=== PATIENT | male | born 1985 | race Caucasian/White ===

== ENCOUNTER 2016-06-28 23:01 | Emergency (ER) | payer BC ==
[2016-06-28 23:14] VITALS: BP 132/92; PULSE 93; BMI 25.7
[2016-06-28] MEDS ORDERED: methylPREDNISolone NA SUCC 125 MG/2 ML VIAL ONE (23:30)
[2016-06-28] MEDS ORDERED: FAMOTIDINE 20 MG/50 ML IVPB 50 ML IVPB ONE ×3 (23:31→23:46)
[2016-06-28] MEDS ORDERED: methylPREDNISolone NA SUCC 125 MG/2 ML VIAL IVPB ONE (23:35)
[2016-06-28] MEDS ORDERED: EPINEPHrine/PF 1 MG/1 ML (1:1,000) AMPULE ONE (23:37)
[2016-06-28] MEDS ORDERED: EPINEPHrine 1:1,000 0.3 MG/0.3 ML SYR IM ONE (23:45)
--- NOTE | 2016-06-29 00:31 | PDOC ---
[id number] is a 31 year old male, with a significant past medical history of angioedema (jose 2x daily, hydroxyzine and benadryl as needed) and asthma ( with numerous intubations) who presents to the emergency department with tingling to his tongue and lips which started about an hour and a half ago after eating a grilled chicken salad without dressing around 8PM tonight. He reports taking benadryl about an hours ago, but states he can tell his symptoms are progressing as they usually do because his upper legs feel itchy which he reports happens just before he breaks out in hives. He states he has been referred to an manager company and has an appointment for next week. He denies chest pain, shortness of breath, headache and dizziness. He denies fever, chills, nausea, vomit, diarrhea and constipation. He denies dysuria, frequency, urgency and hematuria. Allergies: NKDA. Pt states he is allergic to everything PCP - Dr. Booth Lead Rider: Dr. Flip Franco Hx: Rheumatoid arthritis, hereditary angioedema, and raynaud's (Mother) <Mary Geronimo - Last Filed: 06/29/16 00:36> <Rebekah Daigle - Last Filed: 06/29/16 01:22> - General Chief Complaint: Allergic Reaction Stated Complaint: ALLERGIC RX Time Seen by Provider: 06/28/16 23:06 Past History <Mary Geronimo - Last Filed: 06/29/16 00:36> - Past Medical History Asthma: Yes Cardiac Disorders: Yes (MVP) GI Disorders: Yes (NEW DX OF CDIFF COLITIS OCTOBER 2012) Kidney Stones: Yes (W/LITHOTRIPSY) - Immunization History Td Vaccination: Yes Immunization Up to Date: Yes - Psycho/Social/Smoking Cessation Hx Anxiety: No Suicidal Ideation: No Smoking Status: No Smoking History: Former smoker Years of Tobacco Use: 0 Have you smoked in the past 12 months: Yes Number of Cigarettes Smoked Daily: 0 Cigars Per Day: 0 Information on smoking cessation initiated: No Hx Alcohol Use: No Drug/Substance Use Hx: No Substance Use Type: None Hx Substance Use Treatment: No <Rebekah Daigle - Last Filed: 06/29/16 01:22> - Past Medical History Allergies/Adverse Reactions: Allergies Allergy/AdvReac Type Severity Reaction Status Date / Time No Known Allergies Allergy Verified 06/28/16 23:06 Home Medications: Ambulatory Orders Diphenhydramine [Benadryl -] 50 mg PO ONCE 06/28/16 Varenicline Tartrate [Chantix] 1 mg PO ASDIR 06/28/16 Review of Systems - Review of Systems Able to Perform ROS?: Yes Comments:: 06/29/16 00:37 CONSTITUTIONAL: Absent: fever, chills, diaphoresis, generalized weakness, malaise, loss of appetite HEENT: (+) lip swelling and tingling. Absent: rhinorrhea, nasal congestion, throat pain , throat swelling, difficulty swallowing, ear pain, eye pain, visual Changes CARDIOVASCULAR: Absent: chest pain, syncope, palpitations, irregular heart rate, lightheadedness , peripheral edema RESPIRATORY: Absent: cough, shortness of breath, dyspnea with exertion, orthopnea, wheezing, stridor, hemoptysis GASTROINTESTINAL: Absent: abdominal pain, abdominal distension, nausea, vomiting, diarrhea, constipation, melena, hematochezia GENITOURINARY: Absent: dysuria, frequency, urgency, hesitancy, hematuria, flank pain, genital pain MUSCULOSKELETAL: Absent: myalgia, arthralgia, joint swelling SKIN: Absent: rash, itching, pallor HEMATOLOGIC/IMMUNOLOGIC: Absent: easy bleeding, easy bruising, lymphadenopathy, frequent infections ENDOCRINE: Absent: unexplained weight gain, unexplained weight loss, heat intolerance, cold intolerance NEUROLOGIC: Absent: headache, focal weakness or paresthesias, dizziness, unsteady gait, seizure, mental status changes, bladder or bowel incontinence PSYCHIATRIC: Absent: anxiety, depression, suicidal or homicidal ideation, hallucinations. <Mary Geronimo - Last Filed: 06/29/16 00:36> *Physical Exam - Vital Signs Last Vital Signs Temp Pulse Resp BP Pulse Ox 93 H 16 132/92 100 06/28/16 23:09 06/28/16 23:09 06/28/16 23:09 06/28/16 23:09 - Physical Exam Comments: 06/29/16 00:37 GENERAL: Well developed, well nourished. Awake and alert. No acute distress. HEENT: (+) Angioedema with maxillary lip swelling. Normocephalic, atraumatic. PERRLA, EOMI. No conjunctival pallor. Sclera are non-icteric. Moist mucous membranes. Oropharynx is clear. NECK: Supple. Full ROM. No JVD. Carotid pulses 2+ and symmetric, without bruits. No thyromegaly. No lymphadenopathy. CARDIOVASCULAR: Regular rate and rhythm. No murmurs, rubs, or gallops. Distal pulses are 2+ and symmetric. PULMONARY: No evidence of respiratory distress. Lungs clear to auscultation bilaterally. No wheezing, rales or rhonchi. ABDOMINAL: Soft. Non-tender. Non-distended. No rebound or guarding. No organomegaly. Normoactive bowel sounds. MUSCULOSKELETAL Normal range of motion at all joints. No bony deformities or tenderness. No CVA tenderness. EXTREMITIES: No cyanosis. No clubbing. No edema. No calf tenderness. SKIN: Warm and dry. Normal capillary refill. No rashes. No jaundice. NEUROLOGICAL: Alert, awake, appropriate. Cranial nerves 2-12 intact. Normoreflexic in the upper and lower extremities. Normal speech. Toes are down-going bilaterally. Gait is normal without ataxia. PSYCHIATRIC: Cooperative. Good eye contact. Appropriate mood and affect. <Mary Geronimo - Last Filed: 06/29/16 00:36> - Vital Signs Last Vital Signs Temp Pulse Resp BP Pulse Ox 93 H 16 132/92 100 06/28/16 23:09 06/28/16 23:09 06/28/16 23:09 06/28/16 23:09 <Rebekah Daigle - Last Filed: 06/29/16 01:22> ED Treatment Course - Medications Given in the ED: ED Medications Discontinued Medications Generic Name Dose Route Start Last Admin Trade Name Phucq PRN Reason Stop Dose Admin Epinephrine HCl 0.3 mg 06/28/16 23:45 06/28/16 23:50 Epipen 0.3mg - IM 06/28/16 23:46 0.3 mg ONCE ONE Administration Famotidine/Sodium Chloride 50 mls @ 100 mls/hr 06/28/16 23:35 06/28/16 23:35 Pepcid 20 Mg Premixed Ivpb - IVPB 06/29/16 00:04 100 mls/hr ONCE ONE Administration Famotidine/Sodium Chloride 50 mls @ 100 mls/hr 06/28/16 23:46 06/28/16 23:51 Pepcid 20 Mg Premixed Ivpb - IVPB 06/29/16 00:15 Not Given ONCE ONE Methylprednisolone Sodium Succinate 125 mg 06/28/16 23:35 06/28/16 23:35 Solu-Medrol - IVPB 06/28/16 23:36 125 mg NOW ONE Administration <Mary Geronimo - Last Filed: 06/29/16 00:36> - Medications Given in the ED: ED Medications Discontinued Medications Generic Name Dose Route Start Last Admin Trade Name Ashley PRN Reason Stop Dose Admin Epinephrine HCl 0.3 mg 06/28/16 23:45 06/28/16 23:50 Epipen 0.3mg - IM 06/28/16 23:46 0.3 mg ONCE ONE Administration Famotidine/Sodium Chloride 50 mls @ 100 mls/hr 06/28/16 23:35 06/28/16 23:35 Pepcid 20 Mg Premixed Ivpb - IVPB 06/29/16 00:04 100 mls/hr ONCE ONE Administration Famotidine/Sodium Chloride 50 mls @ 100 mls/hr 06/28/16 23:46 06/28/16 23:51 Pepcid 20 Mg Premixed Ivpb - IVPB 06/29/16 00:15 Not Given ONCE ONE Methylprednisolone Sodium Succinate 125 mg 06/28/16 23:35 06/28/16 23:35 Solu-Medrol - IVPB 06/28/16 23:36 125 mg NOW ONE Administration <Rebekah Daigle - Last Filed: 06/29/16 01:22> Medical Decision Making - Medical Decision Making 06/29/16 01:21 31-year-old male with a history of hereditary angioedema presents with maxillary lip swelling. Lungs are clear, no evidence of wheezing. He is not in any respiratory distress. No hives are appreciated. Patient did receive IV steroids, subcutaneous epinephrine and Benadryl and his swelling improved. He is undergoing a workup for his angioedema and is followed by an handy worker and has been referred also to a reproduction production manager <Rebekah Daigle - Last Filed: 06/29/16 01:22> *DC/Admit/Observation/Transfer - Attestations Scribe Attestion: 06/29/16 00:39 Documentation prepared by Mary Geronimo, acting as health care / medical job titles for Rebekah Daigle MD <Mary Geronimo - Last Filed: 06/29/16 00:36> <Rebekah Daigle - Last Filed: 06/29/16 01:22> Diagnosis at time of Disposition: Angioedema Qualifiers: Encounter type: subsequent encounter Qualified Code(s): T78.3XXD - Angioneurotic edema, subsequent encounter - Discharge Dispostion Disposition: HOME Condition at time of disposition: Stable - Patient Instructions Printed Discharge Instructions: DI for Angioedema Additional Instructions: Please continue your appointments with your specialists
[2016-06-29] MEDS ORDERED: methylPREDNISolone NA SUCC 125 MG/2 ML VIAL IVPB SCH (10:00)
== END 2016-06-29 00:41 | disposition home or self-care (01) ==
LOC: JER 23:01
PROC: 3E033GC Introduction of Other Therapeutic Substance into Peripheral Vein, Percutaneous Approach (ICD-10-PCS; principal; 2016-06-28)
PROC: 3E023GC Introduction of Other Therapeutic Substance into Muscle, Percutaneous Approach (ICD-10-PCS; 2016-06-28)
DX: T78.3XXA Angioneurotic edema, initial encounter (principal); X58.XXXA Exposure to other specified factors, initial encounter; Y93.9 Activity, unspecified; J45.909 Unspecified asthma, uncomplicated; I34.1 Nonrheumatic mitral (valve) prolapse; Z87.442 Personal history of urinary calculi; Z87.891 Personal history of nicotine dependence
CPT/HCPCS: 99282-25

== ENCOUNTER 2016-10-26 18:44 | Emergency (ER) | payer BC ==
[2016-10-26 18:58] VITALS: BP 138/87; PULSE 116; TEMP 97.4; BMI 26.4
[2016-10-26] MEDS ORDERED: IBUPROFEN 400 MG TABLET (FP) PO ONE ×2 (19:43→20:00)
--- NOTE | 2016-10-26 19:43 | PDOC ---
History of Present Illness - General History Source: Patient Exam Limitations: No Limitations - History of Present Illness Initial Comments: 10/26/16 19:49 The patient is a 31 year old male with significant past medical history of angioedema (jose 2x daily, hydroxyzine and benadryl prn) and asthma (with numerous intubations) who presents to the ED for pain and swelling of the right ankle prior to arrival. Patient reports he was moving a piece of furniture when he twisted his right ankle. At that time, the piece of furniture slipped out of his hands and landed on his right ankle. He sustained pain and swelling to his right ankle. The patient denies fever, chills, cough, SOB, chest pain, and palpitations. The patient denies abdominal pain, nausea, vomiting, and diarrhea. Allergies: NKDA Social History: No alcohol, tobacco, or drug use reported. Family Hx: Rheumatoid arthritis, hereditary angioedema, and raynaud's (Mother) Past Surgical History: None reported PCP: Dr. Pritchard ([facility]) Steel Inspector: Dr. Castelan ([facility] [place]) <Jeanne Baldwin - Last Filed: 10/26/16 19:49> - General History Source: Patient <Glynn Clark - Last Filed: 10/26/16 21:45> - General Chief Complaint: Injury Stated Complaint: RT ANKLE INJURY/EMPLOYEE Time Seen by Provider: 10/26/16 19:40 Past History <Jeanne Baldwin - Last Filed: 10/26/16 19:49> - Past Medical History Asthma: Yes Cardiac Disorders: Yes (MVP) GI Disorders: Yes (COLITIS) Kidney Stones: Yes (W/LITHOTRIPSY) - Immunization History Td Vaccination: Yes Immunization Up to Date: Yes - Psycho/Social/Smoking Cessation Hx Anxiety: No Suicidal Ideation: No Smoking Status: No Smoking History: Never smoked Years of Tobacco Use: 0 Have you smoked in the past 12 months: Yes Number of Cigarettes Smoked Daily: 0 Cigars Per Day: 0 Hx Alcohol Use: No Drug/Substance Use Hx: No Substance Use Type: None Hx Substance Use Treatment: No <Glynn Clark - Last Filed: 10/26/16 21:45> - Past Medical History Allergies/Adverse Reactions: Allergies Allergy/AdvReac Type Severity Reaction Status Date / Time No Known Allergies Allergy Verified 10/26/16 18:49 Home Medications: Ambulatory Orders Diphenhydramine [Benadryl -] 50 mg PO ONCE 06/28/16 Varenicline Tartrate [Chantix] 1 mg PO ASDIR 06/28/16 Ibuprofen 800 mg PO TID #30 tablet 10/26/16 Oxycodone HCl/Acetaminophen [Percocet 5-325 mg Tablet] 1 tab PO Q6H #20 tablet MDD 4 10/26/16 Review of Systems - Review of Systems Able to Perform ROS?: Yes Comments:: 10/26/16 19:49 CONSTITUTIONAL: Absent: fever, no chills, no fatigue EYES: Absent: visual changes ENT: Absent: ear pain, no sore throat CARDIOVASCULAR: Absent: chest pain, no palpitations RESPIRATORY: Absent: cough, no SOB GI: Absent: abdominal pain, no nausea, no vomiting, no constipation, no diarrhea GENITOURINARY: Absent: dysuria, no frequency, no hematuria MUSCULOSKELETAL: +pain and swelling of the right ankle Absent: back pain, no myalgia SKIN: Absent: rash NEURO: Absent: headache <Jeanne Baldwin - Last Filed: 10/26/16 19:49> *Physical Exam - Vital Signs Last Vital Signs Temp Pulse Resp BP Pulse Ox 97.4 F L 116 H 20 138/87 97 10/26/16 18:46 10/26/16 18:46 10/26/16 18:46 10/26/16 18:46 10/26/16 18:46 - Physical Exam Comments: 10/26/16 19:50 GENERAL: Well-appearing, well-nourished. No apparent distress. HEENT: Normocephalic, atraumatic. PERRL, EOM intact. CARDIOVASCULAR: Normal S1, S2. Regular rate and rhythm. PULMONARY: Clear to auscultation bilaterally. ABDOMEN: Soft, non-distended, non-tender. EXTREMITIES: Normal ROM in all four extremities. Right ankle swelling, tenderness, and ecchymosis. No bony deformity. SKIN: Warm, dry. No rash NEUROLOGICAL: No focal neurological deficits. <Jeanne Baldwin - Last Filed: 10/26/16 19:49> - Vital Signs Last Vital Signs Temp Pulse Resp BP Pulse Ox 97.4 F L 116 H 20 138/87 97 10/26/16 18:46 10/26/16 18:46 10/26/16 18:46 10/26/16 18:46 10/26/16 18:46 <Glynn Clark - Last Filed: 10/26/16 21:45> Medical Decision Making - Medical Decision Making 10/26/16 21:44 Dr. Clark: The scribe's documentation has been prepared under my direction and personally reviewed by me in its entirery. I confirm that the note above accurately reflects all work, treatment, procedures, and medical decision making performed by me. <Glynn Clark - Last Filed: 10/26/16 21:45> *DC/Admit/Observation/Transfer - Attestations Scribe Attestion: 10/26/16 19:50 Documentation prepared by Jeanne Baldwin, acting as medical technical writer for Glynn Clark MD/DO. <Jeanne Baldwin - Last Filed: 10/26/16 19:49> - Discharge Dispostion Admit: No <Glynn Clark - Last Filed: 10/26/16 21:45> Diagnosis at time of Disposition: Right ankle sprain Qualifiers: Encounter type: initial encounter Involved ligament of ankle: unspecified ligament Qualified Code(s): S93.401A - Sprain of unspecified ligament of right ankle, initial encounter - Discharge Dispostion Disposition: HOME Condition at time of disposition: Stable - Prescriptions Prescriptions: Ibuprofen 800 mg PO TID #30 tablet Oxycodone HCl/Acetaminophen [Percocet 5-325 mg Tablet] 1 tab PO Q6H #20 tablet MDD 4 - Referrals Referrals: Evens Alarcon MD [Staff Physician] - - Patient Instructions Printed Discharge Instructions: DI for Ankle Sprain - Post Discharge Activity Work/School Note: Back to Work
[2016-10-26] MEDS ORDERED: OXYCODONE/APAP 5/325MG COMBO TABLET ONE (21:12)
[2016-10-26] MEDS ORDERED: OXYCODONE/APAP 5/325MG COMBO TABLET PO ONE (21:39)
== END 2016-10-26 22:36 | disposition home or self-care (01) ==
LOC: JER 18:44
DX: S93.401A Sprain of unspecified ligament of right ankle, initial encounter (principal); W20.8XXA Other cause of strike by thrown, projected or falling object, initial encounter; Y93.89 Activity, other specified; Y92.9 Unspecified place or not applicable; Y99.0 Civilian activity done for income or pay; T78.3XXA Angioneurotic edema, initial encounter; J45.909 Unspecified asthma, uncomplicated; I34.1 Nonrheumatic mitral (valve) prolapse
CPT/HCPCS: 73610-TC-RT; 73630-TC-RT; 99281-25

== ENCOUNTER 2017-01-04 20:57 | Inpatient (IN) | payer BC, OTHER ==
[2017-01-04] MEDS ORDERED: FAMOTIDINE 20 MG/50 ML IVPB 20 MG in PREMIX 50 IVPB ONE (20:58)
[2017-01-04] MEDS ORDERED: ALBUTEROL SO4 0.083% IH SOL 2.5 MG/3 ML VIAL.NEB. NEB ONE (20:58)
[2017-01-04] MEDS ORDERED: methylPREDNISolone NA SUCC 125 MG/2 ML VIAL IVPB ONE (20:58)
--- NOTE | 2017-01-04 20:58 | PDOC ---
History of Present Illness - General History Source: Patient <AmberGlynn - Last Filed: 01/04/17 22:54> - General History Source: Patient Exam Limitations: No Limitations - History of Present Illness Initial Comments: The patient is a 31 yo M with a past medical history significant for angioedema (jose 2x daily, hydroxyzine and benadryl prn) and asthma (with numerous intubations), recently admitted for allergic reaction who presents sudden onset SOB and sensation of throat closing. The patient presented in moderate respiratory distress. Gave himself his Epipen prior to presentation. The patient is poor historian secondary to moderate distress. Social History: No alcohol, tobacco, or drug use reported. Family Hx: Rheumatoid arthritis, hereditary angioedema, and raynaud's (Mother) Past Surgical History: None reported PCP: Dr. Pritchard ([facility]) Parking Garage Manager: Dr. Castelan ([facility] [place]) <Nabila Cunha - Last Filed: 01/05/17 00:18> - General Stated Complaint: SOB Time Seen by Provider: 01/04/17 20:57 Past History - Past Medical History Asthma: Yes Cardiac Disorders: Yes (MVP) GI Disorders: Yes (NEW DX OF CDIFF COLITIS OCTOBER 2012) Kidney Stones: Yes (W/LITHOTRIPSY) - Immunization History Td Vaccination: Yes Immunization Up to Date: Yes - Psycho/Social/Smoking Cessation Hx Anxiety: No Suicidal Ideation: No Smoking Status: No Smoking History: Former smoker Years of Tobacco Use: 0 Have you smoked in the past 12 months: Yes Number of Cigarettes Smoked Daily: 0 Cigars Per Day: 0 Hx Alcohol Use: No Drug/Substance Use Hx: No Substance Use Type: None Hx Substance Use Treatment: No <Glynn Clark - Last Filed: 01/04/17 22:54> <Nabila Cunha - Last Filed: 01/05/17 00:18> - Past Medical History Allergies/Adverse Reactions: Allergies Allergy/AdvReac Type Severity Reaction Status Date / Time No Known Allergies Allergy Verified 01/04/17 21:16 Home Medications: Ambulatory Orders Diphenhydramine [Benadryl -] 50 mg PO ONCE 06/28/16 Varenicline Tartrate [Chantix] 1 mg PO ASDIR 06/28/16 Ibuprofen 800 mg PO TID #30 tablet 05/31/17 Oxycodone HCl/Acetaminophen [Percocet 5-325 mg Tablet] 1 tab PO Q6H #20 tablet MDD 4 10/26/16 Review of Systems - Review of Systems Able to Perform ROS?: Yes Comments:: CONSTITUTIONAL: Absent: fever, chills, diaphoresis, generalized weakness, malaise, loss of appetite HEENT: Absent: rhinorrhea, nasal congestion, throat pain, throat swelling, difficulty swallowing, mouth swelling, ear pain, eye pain, visual Changes CARDIOVASCULAR: Absent: chest pain, syncope, palpitations, irregular heart rate, lightheadedness , peripheral edema RESPIRATORY: +SOB, stridor Absent: cough, dyspnea with exertion, orthopnea, wheezing, hemoptysis GASTROINTESTINAL: Absent: abdominal pain, abdominal distension, nausea, vomiting, diarrhea, constipation, melena, hematochezia GENITOURINARY: Absent: dysuria, frequency, urgency, hesitancy, hematuria, flank pain, genital pain MUSCULOSKELETAL: Absent: myalgia, arthralgia, joint swelling SKIN: Absent: rash, itching, pallor NEUROLOGIC: Absent: headache, focal weakness or paresthesias, dizziness, unsteady gait, seizure, mental status changes, bladder or bowel incontinence PSYCHIATRIC: Absent: anxiety, depression, suicidal or homicidal ideation, hallucinations. <Nabila Cunha - Last Filed: 01/05/17 00:18> *Physical Exam - Vital Signs Last Vital Signs Temp Pulse Resp BP Pulse Ox 119 H 26 H 152/92 88 L 01/04/17 21:16 01/04/17 21:16 01/04/17 21:16 01/04/17 21:16 - Physical Exam Comments: GENERAL: Well developed, well nourished. Awake and alert. In moderate distress. HEENT: Normocephalic, atraumatic. PERRLA, EOMI. No conjunctival pallor. Sclera are non- icteric. Moist mucous membranes. Oropharynx is clear. NECK: Supple. Full ROM. No JVD. Carotid pulses 2+ and symmetric, without bruits. No thyromegaly. No lymphadenopathy. CARDIOVASCULAR: Regular rate and rhythm. No murmurs, rubs, or gallops. Distal pulses are 2+ and symmetric. PULMONARY: patient was having stridor. No wheezing, rales or rhonchi. ABDOMINAL: Soft. Non-tender. Non-distended. No rebound or guarding. No organomegaly. Normoactive bowel sounds. MUSCULOSKELETAL Normal range of motion at all joints. No bony deformities or tenderness. No CVA tenderness. EXTREMITIES: No cyanosis. No clubbing. No edema. No calf tenderness. SKIN: Warm and dry. Normal capillary refill. No rashes. No jaundice. NEUROLOGICAL: Alert, awake, appropriate. Cranial nerves 2-12 intact. No deficits to light touch and temperature in face, upper extremities and lower extremities. No motor deficits in the in face, upper extremities and lower extremities. Normoreflexic in the upper and lower extremities. Normal speech. Toes are down-going bilaterally. Gait is normal without ataxia. PSYCHIATRIC: Cooperative. Good eye contact. Appropriate mood and affect. <Nabila Cunha - Last Filed: 01/05/17 00:18> Procedures - Intubation Time of Intubation: 21:20 Intubation Method: nasotracheal Blade used: Mac Tube Size (Fr): 7.5 Medications: Ketamine (30ml), Succinylcholine (150ml) Tube position confirmed by: Direct visualization Breath Sounds after Intubation: equal Intubation Complications: no complications Post Intubation Xray: Yes (good position) <Glynn Clark - Last Filed: 01/04/17 22:54> ED Treatment Course - LABORATORY CBC & Chemistry Diagram: 01/04/17 22:22 01/04/17 22:22 <Glynn Clark - Last Filed: 01/04/17 22:54> - LABORATORY CBC & Chemistry Diagram: 01/04/17 22:22 01/04/17 22:22 <Nabila Cunha - Last Filed: 01/05/17 00:18> Medical Decision Making - Medical Decision Making 01/04/17 22:54 Dr. Clark: The scribe's documentation has been prepared under my direction and personally reviewed by me in its entirery. I confirm that the note above accurately reflects all work, treatment, procedures, and medical decision making performed by me. <Glynn Clark - Last Filed: 01/04/17 22:54> - Critical Care Time Total Critical Care Time (minutes): 30 Critical Care Statement: The care of this patient involved high complexity decision making to prevent further life threatening deterioration of the patient 's condition and/or to evalute & treat vital organ system(s) failure or risk of failure. <Nabila Cunha - Last Filed: 01/05/17 00:18> *DC/Admit/Observation/Transfer - Discharge Dispostion Admit: Yes <Glynn Clark - Last Filed: 01/04/17 22:54> - Attestations Scribe Attestion: Documentation prepared by Nabila Cunha, acting as biomedical analytical scientist for Glynn Clark MD/DO. <Nabila Cunha - Last Filed: 01/05/17 00:18> Diagnosis at time of Disposition: Angioedema
[2017-01-04] MEDS ORDERED: FAMOTIDINE 20 MG/50 ML IVPB 50 ML IVPB ONE (20:59)
[2017-01-04] MEDS ORDERED: RACEPINEPHRINE IH SOL 2.25% 11.25 MG/0.5 ML VIAL IH ONE (21:00)
[2017-01-04] MEDS ORDERED: RACEPINEPHRINE IH SOL 2.25% 11.25 MG/0.5 ML VIAL NEB ONE (21:00)
[2017-01-04] MEDS ORDERED: RAPID SEQUENCE INTUBATION KIT NR ONE (21:05)
[2017-01-04] MEDS ORDERED: ETOMIDATE 20 MG/10 ML AMPUL IVPUSH ONE (21:31)
[2017-01-04] MEDS ORDERED: MIDAZOLAM HCL 5 MG/1 ML Single Dose Vial IVPUSH ONE ×2 (21:40→21:41)
[2017-01-04] MEDS ORDERED: PROPOFOL 200 MG/20 ML VIAL IVPUSH ONE (21:42)
[2017-01-04] MEDS: PROPOFOL 100 ML IVPB SCH (22:00)
[2017-01-04] MEDS: MIDAZOLAM 100 MG in SODIUM CHLORIDE 100 ML IVPB SCH (22:29)
[2017-01-04] MEDS ORDERED: VECURONIUM BROMIDE 50 MG VIAL IVPUSH ONE (22:42)
[2017-01-04 22:44] LABS: BASOPHIL 0.3 % (0-2.0); EOSINOPHIL 0.3 % (0-4.5); MCH 26.7 pg (25.7-33.7); MEAN CELL VOLUME 80.8 fl (80-96); MEAN PLT VOLUME 7.5 fl (7.5-11.1); NEUTROPHILS 86.3 % (42.8-82.8); PLATELET COUNT 267 K/MM3 (134-434)
[2017-01-04 22:53] LABS: INR 1.2 (0.82-1.09); PROTHROMBIN TIME (PATIENT) 13.2 SEC (9.98-11.88)
[2017-01-04] MEDS ORDERED: ROCURONIUM BROMIDE 50 MG/5 ML VIAL IVPUSH ONE (23:02)
[2017-01-04 23:03] LABS: ANION GAP 6 (8-16); BILIRUBIN,TOTAL 0.7 mg/dL (0.2-1.0); CO2 25 mmol/L (21-32); CREATININE 1.3 mg/dL (0.7-1.3); GLUCOSE,RANDOM 121 mg/dL (74-106); MAGNESIUM 1.9 mg/dL (1.8-2.4); SGOT/AST 20 U/L (15-37); SGPT/ALT 32 U/L (12-78); TOT PROT 6.1 g/dl (6.4-8.2)
[2017-01-04 23:04] LABS: ALK PHOS 32 U/L (45-117); CPK 268 IU/L (39-308); TROPONIN I < 0.02 ng/ml (0.00-0.05)
--- NOTE | 2017-01-04 23:11 | HP ---
CHIEF COMPLAINT: Angioedema PCP: Dr. 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 Who presents to the ED from home with angioedema and respiratory distress. Patient was intubated in the ED, spoke to his and mother who provided HPI. Per the , the patient developed a rash to his arms, then began having swelling to his mouth, lips, and face, he self-injected Icatibant and then was transported here for evaluation. The spouse reports his last episode of Angioedema was in [facility] where he was intubated and placed on a propofol and versed drips for sedation in the ICU. 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 Asthma Raynaud's Syndrome Essential Tremors Renal Calculi PAST SURGICAL HISTORY: Deviated Septum Cardiac Cath (age 10) Social History: Smoking: Tobacco use Alcohol: Occasional Drugs: None Family History: Hereditary Angioedema (HAE) Allergies No Known Allergies Allergy (Verified 01/04/17 21:16) HOME MEDICATIONS: Home Medications Medication Instructions Recorded Diphenhydramine [Benadryl -] 50 mg PO ONCE 06/28/16 Varenicline Tartrate [Chantix] 1 mg PO ASDIR 06/28/16 Ibuprofen 800 mg PO TID #30 tablet 10/26/16 Oxycodone HCl/Acetaminophen 1 tab PO Q6H #20 tablet MDD 4 10/26/16 [Percocet 5-325 mg Tablet] REVIEW OF SYSTEMS ( Per spouse, ED records) CONSTITUTIONAL: Absent: fever, chills, diaphoresis, generalized weakness, malaise, loss of appetite, weight change HEENT: throat swelling, difficulty swallowing, mouth swelling, Absent: rhinorrhea, nasal congestion, throat pain, ear pain, eye pain, visual changes CARDIOVASCULAR: Absent: chest pain, syncope, palpitations, irregular heart rate, lightheadedness , peripheral edema RESPIRATORY: wheezing, stridor Absent: cough, shortness of breath, dyspnea with exertion, orthopnea, wheezing, stridor, hemoptysis GASTROINTESTINAL: Absent: abdominal pain, abdominal distension, nausea, vomiting, diarrhea, constipation, melena, hematochezia GENITOURINARY: Absent: dysuria, frequency, urgency, hesitancy, hematuria, flank pain, genital pain MUSCULOSKELETAL: Absent: myalgia, arthralgia, joint swelling, back pain, neck pain SKIN: rash Absent: rash, itching, pallor HEMATOLOGIC/IMMUNOLOGIC: Absent: easy bleeding, easy bruising, lymphadenopathy, frequent infections ENDOCRINE: Absent: unexplained weight gain, unexplained weight loss, heat intolerance, cold intolerance NEUROLOGIC: Absent: headache, focal weakness or paresthesias, dizziness, unsteady gait, seizure, mental status changes, bladder or bowel incontinence PSYCHIATRIC: Absent: anxiety, depression, suicidal or homicidal ideation, hallucinations. PHYSICAL EXAMINATION Vital Signs - 24 hr 01/04/17 01/04/17 21:15 21:16 Pulse Rate 110 H 119 H Respiratory 16 26 H Rate Blood Pressure 152/92 O2 Sat by Pulse 100 88 L Oximetry (%) GENERAL: Intubated, on mechanical ventilator, sedated HEAD: Normal with no signs of trauma. EYES: Pupils equal, round and reactive to light, sclera anicteric, conjunctiva clear. No lid lag. EARS, NOSE, THROAT: Ears normal, nares patent, moist mucous membranes. + grossly edematous to mouth, lips, throat NECK: Pasive range of motion, No JVD, or masses. lymphadenopathy, LUNGS: Breath sounds equal, clear to auscultation bilaterally. No wheezes, and no crackles. No accessory muscle use. HEART: Regular rate and rhythm, normal S1 and S2 without murmur, rub or gallop. ABDOMEN: Soft, nontender, not distended, normoactive bowel sounds, no guarding, no rebound, no masses. No hepatomegaly or splenomegaly. GENITOURINARY: Ziegler in place, yellow urine in drainage bag MUSCULOSKELETAL: Normal range of motion at all joints. No bony deformities or tenderness. No CVA tenderness. UPPER EXTREMITIES: 2+ pulses, warm, well-perfused. No cyanosis. No clubbing. No peripheral edema. LOWER EXTREMITIES: 2+ pulses, warm, well-perfused. No calf tenderness. No peripheral edema. NEUROLOGICAL: Intubated on mechanical ventilator, sedated, unable to assess PSYCHIATRIC: Intubated, unable to assess. SKIN: Warm, dry, normal turgor, no rashes or lesions noted, normal capillary refill. 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 Admitted to ICU for Acute Hereditary Angioedema for further evaluation of their emergent condition. Problem List - Problem (1) Hereditary angioedema Assessment/Plan: - Admit to ICU - Continue cardiac monitoring - Patient has a hx of Hereditary Angioedema - Icatibant self injected by patient before ED arrival per patient's spouse - Intubated in ED for airway management, reassess in am - Solumederol, Racemic Epinephrine, Solumederol, Famotidine, Diphenhydramine given in ED - Continue Solumederol, Famotidine IV - Bendaryl prn - Appreciate Wire Weaving Loom Setter Consult - Calls placed by ED resident to patient's Senior Information Security Architect, will have Day team f/u - Icatibant prn Code(s): D84.1 - DEFECTS IN THE COMPLEMENT SYSTEM (2) Asthma Assessment/Plan: - Duonebs prn - Monitor vitals Code(s): J45.909 - UNSPECIFIED ASTHMA, UNCOMPLICATED (3) Essential tremor Assessment/Plan: -Monitor and treat accordingly Code(s): G25.0 - ESSENTIAL TREMOR (4) Raynauds syndrome Assessment/Plan: - Continue to monitor and treat with interventions accordingly Code(s): I73.00 - RAYNAUD'S SYNDROME WITHOUT GANGRENE (5) DVT prophylaxis Assessment/Plan: - SCDs - Heparin SQ Code(s): DVR2630 - Visit type - Emergency Visit Emergency Visit: Yes ED Registration Date: 01/04/17 Care time: The patient presented to the Emergency Department on the above date and was hospitalized for further evaluation of their emergent condition. - New Patient This patient is new to me today: Yes Date on this admission: 01/04/17 - Critical Care Critical Care patient: Yes Total Critical Care Time (in minutes): 32 Critical Care Statement: The care of this patient involved high complexity decision making to prevent further life threatening deterioration of the patient 's condition and/or to evalute & treat vital organ system(s) failure or risk of failure.
[2017-01-04 23:42] LABS: ARTERIAL BLOOD GAS BASE EXCESS -0.4 meq/l (-2-2); ARTERIAL BLOOD GAS HCO3 23.8 meq/L (22-26)
[2017-01-04 23:43] LABS: METHEMOGLOBIN 0.7 % (0.4-1.5)
[2017-01-04 23:44] LABS: ALLENS TEST POSITIVE; ART PUNCT SITE RIGHT RADIAL; LPM/O2% 50%; MECH. VENT. YES; PT. ON O2? YES; TYPE OF O2 MECH VENT; VENT RATE 12; VT/PRESS 500
--- NOTE | 2017-01-05 00:55 | CONSULT ---
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 Patient was intubated in the ED and given solumedrol, benadryl and Pepcid. As per report his stated that the patient developed a rash to his arms, then began having swelling to his face. He self-injected Icatibant prior to coming to ED. She reports his last episode of angioedema was in [facility]. He was sedated with Propofol and Versed drips and transported to ICU for management. - History Source History Provided By: Family Member, Medical Record Limitations to Obtaining History: Other (Sedated) - Past Medical History Pulmonary: Yes: Asthma, Other (HAE) Dermatology: Yes: Other (urticaria) - Alcohol/Substance Use Hx Alcohol Use: No - Smoking History Smoking history: Former smoker Have you smoked in the past 12 months: Yes Aproximately how many cigarettes per day: 0 - Social History Usual Living Arrangement: With Spouse Home Medications - Allergies Allergies/Adverse Reactions: Allergies Allergy/AdvReac Type Severity Reaction Status Date / Time No Known Allergies Allergy Verified 01/04/17 21:16 - Home Medications Home Medications: Ambulatory Orders Diphenhydramine [Benadryl -] 50 mg PO ONCE 06/28/16 Varenicline Tartrate [Chantix] 1 mg PO ASDIR 06/28/16 Ibuprofen 800 mg PO TID #30 tablet 10/26/16 Oxycodone HCl/Acetaminophen [Percocet 5-325 mg Tablet] 1 tab PO Q6H #20 tablet MDD 4 10/26/16 Family Disease History - Family Disease History Family History: Unremarkable Review of Systems Unable to obtain ROS, reason: Intubated and sedated Physical Exam Vital Signs: Vital Signs Temperature 98 F 01/04/17 23:46 Pulse Rate 102 H 01/04/17 23:46 Respiratory Rate 14 01/05/17 00:15 Blood Pressure 109/55 01/04/17 23:46 O2 Sat by Pulse Oximetry (%) 100 01/04/17 23:46 Constitutional: Yes: Well Nourished, Calm Eyes: Yes: WNL, Conjunctiva Clear, PERRL HENT: Yes: Atraumatic, Normocephalic Neck: Yes: Supple, Trachea Midline Cardiovascular: Yes: Regular Rate and Rhythm, S1, S2 Respiratory: Yes: CTA Bilaterally, Intubated, Mechanically Ventilated Gastrointestinal: Yes: Soft Renal/: Yes: Ziegler Present Musculoskeletal: Yes: WNL Extremities: Yes: WNL Edema: No Peripheral Pulses WNL: Yes Integumentary: Yes: WNL Neurological: Yes: Other (Sedated) Labs: CBC,CMP WBC 8.0 K/mm3 (4.0-10.0) 01/04/17 22:22 RBC 5.02 M/mm3 (4.00-5.60) 01/04/17 22:22 Hgb 13.4 GM/dL (11.7-16.9) 01/04/17 22:22 Hct 40.6 % (35.4-49) 01/04/17 22:22 MCV 80.8 fl (80-96) 01/04/17 22:22 MCH 26.7 pg (25.7-33.7) 01/04/17 22:22 MCHC 33.0 g/dl (32.0-35.9) 01/04/17 22:22 RDW 15.0 % (11.9-15.9) D 01/04/17 22:22 Plt Count 267 K/MM3 (134-434) 01/04/17 22:22 MPV 7.5 fl (7.5-11.1) 01/04/17 22:22 Neutrophils % 86.3 % (42.8-82.8) H D 01/04/17 22:22 Lymphocytes % 9.1 % (8-40) D 01/04/17 22:22 Monocytes % 4.0 % (3.8-10.2) 01/04/17 22:22 Eosinophils % 0.3 % (0-4.5) 01/04/17 22:22 Basophils % 0.3 % (0-2.0) 01/04/17 22:22 Sodium 143 mmol/L (136-145) 01/04/17 22:22 Potassium 4.0 mmol/L (3.5-5.1) 01/04/17 22:22 Chloride 112 mmol/L (98-107) H 01/04/17 22:22 Carbon Dioxide 25 mmol/L (21-32) 01/04/17 22:22 Anion Gap 6 (8-16) L 01/04/17 22:22 BUN 11 mg/dL (7-18) 01/04/17 22:22 Creatinine 1.3 mg/dL (0.7-1.3) 01/04/17 22:22 Creat Clearance w eGFR > 60 (>60) 01/04/17 22:22 Random Glucose 121 mg/dL (74-106) H 01/04/17 22:22 Calcium 8.0 mg/dL (8.5-10.1) L 01/04/17 22:22 Magnesium 1.9 mg/dL (1.8-2.4) 01/04/17 22:22 Total Bilirubin 0.7 mg/dL (0.2-1.0) D 01/04/17 22:22 AST 20 U/L (15-37) 01/04/17 22:22 ALT 32 U/L (12-78) D 01/04/17 22:22 Alkaline Phosphatase 32 U/L (45-117) L D 01/04/17 22:22 Creatine Kinase 268 IU/L (39-308) 01/04/17 22:22 Creatine Kinase Index 0.3 % (0.0-5.0) 01/04/17 22:22 CK-MB (CK-2) 1.061 ng/mL (0.5-3.6) 01/04/17 22:22 Troponin I < 0.02 ng/ml (0.00-0.05) 01/04/17 22:22 Total Protein 6.1 g/dl (6.4-8.2) L 01/04/17 22:22 Albumin 3.0 g/dl (3.4-5.0) L 01/04/17 22:22 ABG Results ABG pH 7.40 (7.35-7.45) 01/04/17 23:30 ABG pCO2 at Pt Temp 39.8 mmHg (35-45) D 01/04/17 23:30 ABG pO2 at Pt Temp 210.0 mmHg (80-100) H* 01/04/17 23:30 ABG HCO3 23.8 meq/L (22-26) 01/04/17 23:30 ABG O2 Sat (Measured) 100.0 % (90-98.9) H* 01/04/17 23:30 ABG O2 Content 19.7 % vol (15-22) 01/04/17 23:30 ABG Base Excess -0.4 meq/l (-2-2) 01/04/17 23:30 Vent AC/VC-16,400,50%,5 Home Medications Medication Instructions Recorded Diphenhydramine [Benadryl -] 50 mg PO ONCE 06/28/16 Varenicline Tartrate [Chantix] 1 mg PO ASDIR 06/28/16 Ibuprofen 800 mg PO TID #30 tablet 10/26/16 Oxycodone HCl/Acetaminophen 1 tab PO Q6H #20 tablet MDD 4 10/26/16 [Percocet 5-325 mg Tablet] Active Medications Chlorhexidine Gluconate (Hibiclens For Decolonization -) 1 applic TP HS COTY Heparin Sodium (Porcine) (Heparin -) 5,000 unit SQ TID COTY Midazolam HCl 100 mg/ Sodium (Chloride) 100 mls @ 1 mls/hr IVPB TITR COTY; 1 MG/ HR PRN Reason: Protocol Last Titration: 01/05/17 00:35 Dose: 8 mg/hr Propofol (Diprivan -) 100 mls @ 2.585 mls/hr IVPB TITR COTY; 5 MCG/KG/MIN PRN Reason: Protocol Last Titration: 01/05/17 01:47 Dose: 30 mcg/kg/min Famotidine/Sodium Chloride (Pepcid 20 Mg Premixed Ivpb -) 50 mls @ 100 mls/hr IVPB BID COTY Methylprednisolone Sodium Succinate (Solu-Medrol -) 80 mg IVPB DAILY [facility] Mupirocin (Bactroban Ointment (For Decolonization) -) 1 applic NS BID COTY Stop: 01/10/17 09:59 Pneumococcal 13-Valent Conj Vacc (Prevnar 13 Syringe -) 0.5 ml IM .ONCE ONE Stop: 01/05/17 08:01 Imaging - Results Chest X-ray: Image Reviewed (ETT in place; bilat haziness in lower lobes) Assessment/Plan a 31 y/o male with a significant medical history of 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 Self injected Icatibant prior to admission. Started on Solumedrol, pepcid and benadryl Plan: Pulm: Hereditary angioedema with respiratory distress requiring intubation -Allergy consult -Lung protective vent support -Wean FiO2 -Adequate sedation with propofol and versed drips -SBT in am -Assess cuff leak prior to extubation -Dose Icatibant if available as per protocol -Cont methylpred 60-80mg qd -Continue Benadryl 25mg IV prn -Continue Pepcid BID -Adequate hydration Proph: Heparin sq
[2017-01-05 01:01] VITALS: BMI 27.2
[2017-01-05] MEDS: PROPOFOL 100 ML IVPB SCH ×4 (02:00→14:23)
[2017-01-05] MEDS: HEPARIN NA (PORCINE) 5,000 UNITS/ML 1ML VIAL SQ SCH ×3 (06:12→21:53)
[2017-01-05 06:29] LABS: BASOPHIL 0.1 % (0-2.0); MCH 26.7 pg (25.7-33.7); MEAN PLT VOLUME 7.6 fl (7.5-11.1); NEUTROPHILS 90.5 % (42.8-82.8); PLATELET COUNT 287 K/MM3 (134-434); RDW 15.6 % (11.9-15.9); WHITE BLOOD COUNT 10.2 K/mm3 (4.0-10.0)
[2017-01-05 06:58] LABS: ANION GAP 7 (8-16); CALCIUM 8.2 mg/dL (8.5-10.1); CO2 24 mmol/L (21-32); CREATININE 1.2 mg/dL (0.7-1.3); GLUCOSE,RANDOM 128 mg/dL (74-106)
[2017-01-05] MEDS: MIDAZOLAM 100 MG in SODIUM CHLORIDE 100 ML IVPB SCH (07:09)
[2017-01-05 07:34] LABS: ARTERIAL BLD GAS O2 SATURATION 99.7 % (90-98.9); ARTERIAL BLOOD GAS BASE EXCESS -1.1 meq/l (-2-2); ARTERIAL BLOOD GAS HCO3 23.1 meq/L (22-26); ARTERIAL BLOOD GAS pH 7.39 (7.35-7.45)
[2017-01-05 07:35] LABS: ALLENS TEST POSITIVE; ART PUNCT SITE RIGHT RADIAL; LPM/O2% 40%; PT. ON O2? YES; TYPE OF O2 MEC.VENT
[2017-01-05 07:36] LABS: MECH. VENT. YES; VENT RATE 12; VT/PRESS 500
[2017-01-05] MEDS ORDERED: PNEUMOCOCCAL 23 VACCINE 0.5 ML VIAL IM ONE (08:00)
[2017-01-05] MEDS ORDERED: PNEUMOC 13-VAL CONJ-DIP CRM/PF 0.5 ML DISP.SYRIN IM ONE (08:00)
--- NOTE | 2017-01-05 08:30 | PN ---
Progress Note (short form) - Note Progress Note: Subjective: The patient is intubated and sedated in the ICU Vent AC/VC: 12/500/40%/5 Current Medications Generic Name Dose Route Start Last Admin Trade Name Ashley PRN Reason Stop Dose Admin Chlorhexidine Gluconate 1 applic 01/05/17 22:00 Hibiclens For Decolonization - TP HS COTY Heparin Sodium (Porcine) 5,000 unit 01/05/17 06:00 01/05/17 06:12 Heparin - SQ 5,000 unit TID COTY Administration Midazolam HCl 100 mg/ Sodium 100 mls @ 1 mls/hr 01/04/17 21:45 01/05/17 07:09 Chloride IVPB 4 mls/hr TITR COTY Administration Protocol 1 MG/HR Propofol 100 mls @ 2.585 mls/hr 01/04/17 22:00 01/05/17 07:09 Diprivan - IVPB 20 mls/hr TITR COTY Administration Protocol 5 MCG/KG/MIN Famotidine/Sodium Chloride 50 mls @ 100 mls/hr 01/05/17 10:00 Pepcid 20 Mg Premixed Ivpb - IVPB BID COTY Methylprednisolone Sodium Succinate 80 mg 01/05/17 10:00 Solu-Medrol - IVPB DAILY COTY Mupirocin 1 applic 01/05/17 10:00 Bactroban Ointment (For Decolonization) - NS 01/10/17 09:59 BID COTY Objective: Vital Signs Period Temp Pulse Resp BP Sys/Laguerre Pulse Ox Last 24 Hr 98 F-98.8 F 86-119 12-26 102-152/54-92 88-100 Physical Exam: General: Intubated, sedated HEENT: Lip swelling, protruding tongue Lungs: Rhonchi b/l >R Heart: Tachycardia, S1S2 Abd: Soft, normoactive bowel sounds Ext: Warm, well-perfused. 2+ DP/PT bilaterally Neuro: sedated CBCD WBC 10.2 K/mm3 (4.0-10.0) H 01/05/17 05:15 RBC 5.22 M/mm3 (4.00-5.60) 01/05/17 05:15 Hgb 13.9 GM/dL (11.7-16.9) 01/05/17 05:15 Hct 42.3 % (35.4-49) 01/05/17 05:15 MCV 81.0 fl (80-96) 01/05/17 05:15 MCHC 33.0 g/dl (32.0-35.9) 01/05/17 05:15 RDW 15.6 % (11.9-15.9) 01/05/17 05:15 Plt Count 287 K/MM3 (134-434) 01/05/17 05:15 MPV 7.6 fl (7.5-11.1) 01/05/17 05:15 CMP Sodium 140 mmol/L (136-145) 01/05/17 05:15 Potassium 5.0 mmol/L (3.5-5.1) D 01/05/17 05:15 Chloride 109 mmol/L (98-107) H 01/05/17 05:15 Carbon Dioxide 24 mmol/L (21-32) 01/05/17 05:15 Anion Gap 7 (8-16) L 01/05/17 05:15 BUN 11 mg/dL (7-18) 01/05/17 05:15 Creatinine 1.2 mg/dL (0.7-1.3) 01/05/17 05:15 Creat Clearance w eGFR > 60 (>60) 01/04/17 22:22 Random Glucose 128 mg/dL (74-106) H 01/05/17 05:15 Calcium 8.2 mg/dL (8.5-10.1) L 01/05/17 05:15 Total Bilirubin 0.7 mg/dL (0.2-1.0) D 01/04/17 22:22 AST 20 U/L (15-37) 01/04/17 22:22 ALT 32 U/L (12-78) D 01/04/17 22:22 Alkaline Phosphatase 32 U/L (45-117) L D 01/04/17 22:22 Total Protein 6.1 g/dl (6.4-8.2) L 01/04/17 22:22 Albumin 3.0 g/dl (3.4-5.0) L 01/04/17 22:22 CARDIAC ENZYMES Creatine Kinase 268 IU/L (39-308) 01/04/17 22:22 Troponin I < 0.02 ng/ml (0.00-0.05) 01/04/17 22:22 Assessment: This is a 31 year old male with PMHx of type III hereditary angioedema with factor 12 mutation requiring multiple intubations, asthma, raynaud's syndrome, essential tremor, renal calculi who presented to the ED with angioedema and respiratory distress. Plan: 1) Type III hereditary angioedema with factor xii deficiency - Intubated for airway protection - Icatibant given by patient prior to arrival in ED. Called pharmacy and we do not have that medication. F/u with family to bring it in as repeat dosing may be necessary - Patient started on Solu-medrol, however effectiveness of steroids for hereditary angioedema appears very low - Will follow-up with patient's insurance defense paralegal and desktop support engineer - Continued ICU care required 2) Segmental LLL infiltrate - WBC trending up - Will cover for CAP - Start Azithromycin and Ceftriaxone 3) Asthma: - Duonebs prn - Continue to monitor 4) F/E/N: - NPO - Monitor electrolytes 5) Prophylaxis: - Heparin 5,000u sq tid - SCDs bilaterally 6) Dispo: - Requires continued ICU care CODE STATUS: FULL CODE Visit type - Emergency Visit Emergency Visit: Yes ED Registration Date: 01/04/17 Care time: The patient presented to the Emergency Department on the above date and was hospitalized for further evaluation of their emergent condition. - New Patient This patient is new to me today: Yes Date on this admission: 01/05/17 - Critical Care Critical Care patient: Yes Total Critical Care Time (in minutes): 45 Critical Care Statement: The care of this patient involved high complexity decision making to prevent further life threatening deterioration of the patient 's condition and/or to evalute & treat vital organ system(s) failure or risk of failure.
[2017-01-05] MEDS: FAMOTIDINE 20 MG/50 ML IVPB 50 ML IVPB SCH ×2 (09:26→21:53)
--- NOTE | 2017-01-05 09:29 | PN ---
Physical Exam: SUBJECTIVE: Patient seen and examined at bed side. 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 CAD as per mother) for which he had a cath at age 10 years, TIA 4 yrs ago was on aspirin for 2 yrs, was brought to the ED from home with angioedema and respiratory distress. Patient is currently in the ICU, sedated and Intubated to protect the airways. Mother is at bed side, who mentions that she has a h/o angioedema but [employer] works for her but not for her son. OBJECTIVE: Vital Signs Period Temp Pulse Resp BP Sys/Laguerre Pulse Ox Last 24 Hr 98 F-98.8 F 86-102 12-18 102-121/54-74 94-100 GENERAL: The patient is intubated. HEAD: Normal with no signs of trauma. EYES: PERRL, no pallor or icterus. ENT: Ears normal, moist mucous membranes. NECK: Trachea midline. LUNGS: Coarse breath sounds, crackles at the left base, no accessory muscle use. HEART: Regular rate and rhythm, S1, S2 without murmur. ABDOMEN: Soft, nontender, nondistended, normoactive bowel sounds, no guarding, no rebound, no hepatosplenomegaly, no masses. EXTREMITIES: 2+ pulses, warm, well-perfused, no edema. NEUROLOGICAL: Sedated and intubated PSYCH: Normal mood, normal affect. SKIN: Warm, dry, normal turgor, no rashes or lesions noted Laboratory Results - last 24 hr 01/04/17 01/05/17 01/05/17 23:30 05:15 05:15 WBC 10.2 H RBC 5.22 Hgb 13.9 Hct 42.3 MCV 81.0 MCH 26.7 MCHC 33.0 RDW 15.6 Plt Count 287 MPV 7.6 Neutrophils % 90.5 H Lymphocytes % 8.8 Monocytes % 0.6 L D Eosinophils % 0.0 D Basophils % 0.1 Puncture Site Right radial ABG pH 7.40 ABG pCO2 at Pt Temp 39.8 D ABG pO2 at Pt Temp 210.0 H* ABG HCO3 23.8 ABG O2 Sat (Measured) 100.0 H* ABG O2 Content 19.7 ABG Base Excess -0.4 Franklin Test Positive Carboxyhemoglobin 1.7 Methemoglobin 0.7 O2 Delivery Device Mech vent Oxygen Flow Rate 50% Vent Mode A/c Vent Rate 12 Mechanical Rate Yes PEEP 5.0 Pressure Support Vent 500 Sodium 140 Potassium 5.0 D Chloride 109 H Carbon Dioxide 24 Anion Gap 7 L BUN 11 Creatinine 1.2 Random Glucose 128 H Calcium 8.2 L 01/05/17 07:20 WBC RBC Hgb Hct MCV MCH MCHC RDW Plt Count MPV Neutrophils % Lymphocytes % Monocytes % Eosinophils % Basophils % Puncture Site Right radial ABG pH 7.39 ABG pCO2 at Pt Temp 38.7 ABG pO2 at Pt Temp 155.0 H* ABG HCO3 23.1 ABG O2 Sat (Measured) 99.7 H* ABG O2 Content 19.5 ABG Base Excess -1.1 Franklin Test Positive Carboxyhemoglobin Methemoglobin O2 Delivery Device Mec.vent Oxygen Flow Rate 40% Vent Mode A/c Vent Rate 12 Mechanical Rate Yes PEEP 5.0 Pressure Support Vent 500 Sodium Potassium Chloride Carbon Dioxide Anion Gap BUN Creatinine Random Glucose Calcium Active Medications Generic Name Dose Route Start Last Admin Trade Name Freq PRN Reason Stop Dose Admin Chlorhexidine Gluconate 1 applic 01/05/17 22:00 Hibiclens For Decolonization - TP HS COTY Heparin Sodium (Porcine) 5,000 unit 01/05/17 06:00 01/05/17 06:12 Heparin - SQ 5,000 unit TID COTY Administration Midazolam HCl 100 mg/ Sodium 100 mls @ 1 mls/hr 01/04/17 21:45 01/05/17 07:09 Chloride IVPB 4 mls/hr TITR COTY Administration Protocol 1 MG/HR Propofol 100 mls @ 2.585 mls/hr 01/04/17 22:00 01/05/17 07:09 Diprivan - IVPB 20 mls/hr TITR COTY Administration Protocol 5 MCG/KG/MIN Famotidine/Sodium Chloride 50 mls @ 100 mls/hr 01/05/17 10:00 Pepcid 20 Mg Premixed Ivpb - IVPB BID COTY Azithromycin 250 mls @ 250 mls/hr 01/05/17 10:00 Zithromax 500mg Ivpb (Pre-Docked) IVPB DAILY COTY Ceftriaxone Sodium 50 mls @ 100 mls/hr 01/05/17 10:00 Rocephin 1gm Ivpb (Pre-Docked) IVPB DAILY [facility] Methylprednisolone Sodium Succinate 80 mg 01/05/17 10:00 Solu-Medrol - IVPB DAILY [facility] Mupirocin 1 applic 01/05/17 10:00 Bactroban Ointment (For Decolonization) - NS 01/10/17 09:59 BID [facility] ASSESSMENT/PLAN: Patient is a 31 year old male with h/o 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 CAD as per mother) for which he had a cath at age 10 years, TIA 4 yrs ago was on aspirin for 2 yrs, was brought to the ED from home with angioedema and respiratory distress. Hereditary angioedema type III with factor XII deficiency Patient came in with respiratory distress was intubated in the ED for airway protection Has been intubated multiple times in the past. Call placed to Dr. Thom Neves ([phone] cell no)Restaurant Shift Leader fellow at [facility]) who knows the patient very well. He recommended not to give FFP's- It would only help acutely but in a long run may activate the cascade system and cause life threatening problems. Hence suggested to give Cinryze (C1 esterase inhibitor). Patient's family brought the medication from home, verified the meds with our pharmacy and 1000 IU is to be given Intravenously today and 1000 IU to be given tomorrow. Will slowly try to wean him and extubate today. Solumedrol, Benadryl, FFPs, PPI will not be helpful in this condition Community acquired pneumonia-left lower lobe Leukocytosis trended up, it could also be due to steroids CXR shows left lower lobe infiltrate. IV Ceftriaxone and IV Azithromycin- Day 1 Asthma-not in exaberation Has been intubated multiple time in the past Oxygen, nebs PRN FEN Not in IV fluids Electrolytes normal, to be repeated tomorrow NPO, patient intubated, planning to extubate today. Prophylaxis For DVT-Heparin 5,000u sq TID For Prophylaxis- Not indicated at this time Dispo- Admitted in ICU and to continue care. Code Status- Full Code Illness, Investigation and Plan of care explained to the patients mother. She verbalized understanding. Case seen and discussed with Dr. Ash. Visit type - Emergency Visit Emergency Visit: Yes ED Registration Date: 01/04/17 Care time: The patient presented to the Emergency Department on the above date and was hospitalized for further evaluation of their emergent condition. - New Patient This patient is new to me today: Yes Date on this admission: 01/05/17 - Critical Care Critical Care patient: Yes Total Critical Care Time (in minutes): 35 Critical Care Statement: The care of this patient involved high complexity decision making to prevent further life threatening deterioration of the patient 's condition and/or to evalute & treat vital organ system(s) failure or risk of failure.
[2017-01-05] MEDS ORDERED: AZITHROMYCIN IVPB 250 ML IVPB SCH (10:00)
[2017-01-05] MEDS ORDERED: methylPREDNISolone NA SUCC 125 MG/2 ML VIAL IVPB SCH (10:00)
[2017-01-05] MEDS ORDERED: CEFTRIAXONE 50 ML IVPB SCH (10:00)
[2017-01-05] MEDS: MUPIROCIN 2% TOPICAL OINTMENT FOR DECOLONIZATION NS SCH ×2 (14:25→21:53)
[2017-01-05] MEDS ORDERED: [UNRECOGNIZED DRUG - OTHER] NR SCH (14:30)
--- NOTE | 2017-01-05 15:17 | PN ---
Teaching Attending Note Name of Resident: Kathy Ennis ATTENDING PHYSICIAN STATEMENT I saw and evaluated the patient. I reviewed the resident's note and discussed the case with the resident. I agree with the resident's findings and plan as documented. SUBJECTIVE: Patient seen and examined in the ICU. Remains intubated and sedated. House staff spoke to Allergy/Immunology fellow at [facility]. We were instructed to hold FFP and give him a dose of his C1 today and tomorrow. Intake & Output 01/02/17 01/03/17 01/04/17 01/05/17 23:59 23:59 23:59 23:59 Intake Total 160 Output Total 100 600 Balance -100 -440 Weight 190 lb 195 lb 6 oz Last Vital Signs Temp Pulse Resp BP Pulse Ox 98 F 94 H 17 112/66 97 01/05/17 11:00 01/05/17 11:00 01/05/17 12:41 01/05/17 11:00 01/05/17 09:00 Active Medications Chlorhexidine Gluconate (Hibiclens For Decolonization -) 1 applic TP HS COTY Heparin Sodium (Porcine) (Heparin -) 5,000 unit SQ TID [facility] Last Admin: 01/05/17 14:24 Dose: 5,000 unit Midazolam HCl 100 mg/ Sodium (Chloride) 100 mls @ 1 mls/hr IVPB TITR COTY; 1 MG/ HR PRN Reason: Protocol Last Admin: 01/05/17 07:09 Dose: 4 mls/hr Propofol (Diprivan -) 100 mls @ 2.585 mls/hr IVPB TITR COTY; 5 MCG/KG/MIN PRN Reason: Protocol Last Admin: 01/05/17 14:23 Dose: 20 mls/hr Famotidine/Sodium Chloride (Pepcid 20 Mg Premixed Ivpb -) 50 mls @ 100 mls/hr IVPB BID [facility] Last Admin: 01/05/17 09:26 Dose: 100 mls/hr Azithromycin (Zithromax 500mg Ivpb (Pre-Docked)) 250 mls @ 250 mls/hr IVPB DAILY [facility] Last Admin: 01/05/17 09:24 Dose: 250 mls/hr Ceftriaxone Sodium (Rocephin 1gm Ivpb (Pre-Docked)) 50 mls @ 100 mls/hr IVPB DAILY [facility] Last Admin: 01/05/17 09:26 Dose: 100 mls/hr Methylprednisolone Sodium Succinate (Solu-Medrol -) 80 mg IVPB DAILY [facility] Last Admin: 01/05/17 09:25 Dose: 80 mg Mupirocin (Bactroban Ointment (For Decolonization) -) 1 applic NS BID [facility] Stop: 01/10/17 09:59 Last Admin: 01/05/17 14:25 Dose: 1 inch Cinryze 500 Unit (Vial) 2 each NR DAILY@1430 [facility] Stop: 01/06/17 14:31 Last Admin: 01/05/17 14:24 Dose: 2 each Constitutional: Yes: Intubated and sedated Eyes: Yes: (-) Pallor (-) Icterus HENT: Yes: Atraumatic, mild lip swelling Neck: Yes: Supple, Trachea Midline Cardiovascular: Yes: Regular Rate and Rhythm, S1, S2 Respiratory: Yes: CTA Bilaterally, Intubated, Mechanically Ventilated Gastrointestinal: Yes: Soft Renal/: Yes: Ziegler Present Musculoskeletal: Yes: WNL Extremities: Yes: WNL Edema: No Peripheral Pulses WNL: Yes Integumentary: Yes: WNL Neurological: Yes: Other (Sedated) Labs: Laboratory Results - last 24 hr 01/04/17 01/04/17 01/04/17 22:22 22:22 22:22 WBC 8.0 RBC 5.02 Hgb 13.4 Hct 40.6 MCV 80.8 MCH 26.7 MCHC 33.0 RDW 15.0 D Plt Count 267 MPV 7.5 Neutrophils % 86.3 H D Lymphocytes % 9.1 D Monocytes % 4.0 Eosinophils % 0.3 Basophils % 0.3 INR 1.20 H D Puncture Site ABG pH ABG pCO2 at Pt Temp ABG pO2 at Pt Temp ABG HCO3 ABG O2 Sat (Measured) ABG O2 Content ABG Base Excess Franklin Test Carboxyhemoglobin Methemoglobin O2 Delivery Device Oxygen Flow Rate Vent Mode Vent Rate Mechanical Rate PEEP Pressure Support Vent Sodium 143 Potassium 4.0 Chloride 112 H Carbon Dioxide 25 Anion Gap 6 L BUN 11 Creatinine 1.3 Creat Clearance w eGFR > 60 Random Glucose 121 H Calcium 8.0 L Magnesium 1.9 Total Bilirubin 0.7 D AST 20 ALT 32 D Alkaline Phosphatase 32 L D Creatine Kinase Creatine Kinase Index CK-MB (CK-2) Troponin I Total Protein 6.1 L Albumin 3.0 L 01/04/17 01/04/17 01/05/17 22:22 23:30 05:15 WBC 10.2 H RBC 5.22 Hgb 13.9 Hct 42.3 MCV 81.0 MCH 26.7 MCHC 33.0 RDW 15.6 Plt Count 287 MPV 7.6 Neutrophils % 90.5 H Lymphocytes % 8.8 Monocytes % 0.6 L D Eosinophils % 0.0 D Basophils % 0.1 INR Puncture Site Right radial ABG pH 7.40 ABG pCO2 at Pt Temp 39.8 D ABG pO2 at Pt Temp 210.0 H* ABG HCO3 23.8 ABG O2 Sat (Measured) 100.0 H* ABG O2 Content 19.7 ABG Base Excess -0.4 Franklin Test Positive Carboxyhemoglobin 1.7 Methemoglobin 0.7 O2 Delivery Device Mech vent Oxygen Flow Rate 50% Vent Mode A/c Vent Rate 12 Mechanical Rate Yes PEEP 5.0 Pressure Support Vent 500 Sodium Potassium Chloride Carbon Dioxide Anion Gap BUN Creatinine Creat Clearance w eGFR Random Glucose Calcium Magnesium Total Bilirubin AST ALT Alkaline Phosphatase Creatine Kinase 268 Creatine Kinase Index 0.3 CK-MB (CK-2) 1.061 Troponin I < 0.02 Total Protein Albumin 01/05/17 01/05/17 05:15 07:20 WBC RBC Hgb Hct MCV MCH MCHC RDW Plt Count MPV Neutrophils % Lymphocytes % Monocytes % Eosinophils % Basophils % INR Puncture Site Right radial ABG pH 7.39 ABG pCO2 at Pt Temp 38.7 ABG pO2 at Pt Temp 155.0 H* ABG HCO3 23.1 ABG O2 Sat (Measured) 99.7 H* ABG O2 Content 19.5 ABG Base Excess -1.1 Franklin Test Positive Carboxyhemoglobin Methemoglobin O2 Delivery Device Mec.vent Oxygen Flow Rate 40% Vent Mode A/c Vent Rate 12 Mechanical Rate Yes PEEP 5.0 Pressure Support Vent 500 Sodium 140 Potassium 5.0 D Chloride 109 H Carbon Dioxide 24 Anion Gap 7 L BUN 11 Creatinine 1.2 Creat Clearance w eGFR Random Glucose 128 H Calcium 8.2 L Magnesium Total Bilirubin AST ALT Alkaline Phosphatase Creatine Kinase Creatine Kinase Index CK-MB (CK-2) Troponin I Total Protein Albumin Assessment/Plan Acute Respiratory Failure due to 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
--- NOTE | 2017-01-05 15:29 | EKG ---
Test Reason : Blood Pressure : / mmHG Vent. Rate : 102 BPM Atrial Rate : 102 BPM P-R Int : 136 ms QRS Dur : 092 ms QT Int : 310 ms P-R-T Axes : 055 011 -19 degrees QTc Int : 404 ms SINUS TACHYCARDIA NONSPECIFIC T WAVE ABNORMALITY ABNORMAL ECG WHEN COMPARED WITH ECG OF 30-MAR-2016 09:46, T WAVE INVERSION MORE EVIDENT IN INFERIOR LEADS NONSPECIFIC T WAVE ABNORMALITY NOW EVIDENT IN ANTEROLATERAL LEADS Confirmed by DAYA NUNO, JOSEPHINE ([id number]) on 01/05/2017 3:29:10 PM Referred By: Confirmed By:JOSEPHINE STAPLETON MD
[2017-01-05] MEDS ORDERED: EPINEPHrine 1:1,000 0.3 MG/0.3 ML SYR IM ONE (17:30)
[2017-01-05] MEDS ORDERED: EPINEPHrine/PF 1 MG/1 ML (1:1,000) AMPULE ONE (17:30)
[2017-01-05] MEDS ORDERED: PROPOFOL 100 ML ONE (17:39)
[2017-01-05] MEDS ORDERED: SUCCINYLCHOLINE CHLORIDE 200 MG/10 ML VIAL ONE (17:43)
[2017-01-05] MEDS ORDERED: ETOMIDATE 20 MG/10 ML AMPUL IVPUSH ONE ×3 (17:44→18:08)
[2017-01-05] MEDS ORDERED: MIDAZOLAM HCL 5 MG/1 ML Single Dose Vial ONE ×2 (17:53→17:58)
[2017-01-05] MEDS ORDERED: ROCURONIUM BROMIDE 50 MG/5 ML VIAL IV ONE (18:07)
[2017-01-05] MEDS ORDERED: MIDAZOLAM HCL 5 MG/1 ML Single Dose Vial IVPUSH ONE (18:08)
[2017-01-05] MEDS ORDERED: ETOMIDATE 40 MG/20 ML VIAL IVPUSH ONE (18:08)
[2017-01-05] MEDS ORDERED: EPINEPHrine/PF 1 MG/1 ML (1:1,000) AMPULE IM ONE (18:15)
[2017-01-05] MEDS ORDERED: PROPOFOL 100 ML IVPB SCH (18:15)
--- NOTE | 2017-01-05 18:19 | PROC ---
Intubation - Intubation Reason for Intubation: Other (stridor. angioedema ) Time of Intubation: 18:00 Intubation Method: orotracheal Blade used: Glidescope Tube Size (cm): 7.5 Tube position @ lip (cm): 22 Tube position confirmed by: Direct visualization, CO2 detector, Chest x-ray, Breath sounds Breath Sounds after Intubation: equal Post Intubation Xray: Yes
[2017-01-05] MEDS ORDERED: FIRAZYR SQ ONE (18:23)
[2017-01-05] MEDS ORDERED: [UNRECOGNIZED DRUG - OTHER] NR ONE (18:30)
[2017-01-05] MEDS ORDERED: FENTANYL INJECTION 500 MCG in DEXTROSE 5%-WATER - 90 ML IJ SCH (21:30)
[2017-01-05] MEDS ORDERED: CHLORHEXIDINE GLUCONATE 4% CLEANSER FOR DECOLONIZATION TP SCH (22:00)
[2017-01-06 03:04] VITALS: BP 126/73; PULSE 98; TEMP 99
--- NOTE | 2017-01-11 16:02 | DS ---
Physical Examination Vital Signs: Vital Signs Temperature 99.0 F 01/06/17 00:00 Pulse Rate 98 H 01/06/17 00:00 Respiratory Rate 14 01/06/17 00:16 Blood Pressure 126/73 01/06/17 00:00 O2 Sat by Pulse Oximetry (%) 100 01/05/17 21:00 Labs: CBC, BMP 01/05/17 05:15 01/05/17 05:15 Discharge Summary Reason For Visit: ANGIOEDEMA - Instructions Disposition: TRANSFER ACUTE CARE/OTHER HOSP - Home Medications Comprehensive Discharge Medication List: Ambulatory Orders Diphenhydramine [Benadryl -] 50 mg PO ONCE 06/28/16 Varenicline Tartrate [Chantix] 1 mg PO ASDIR 06/28/16 Ibuprofen 800 mg PO TID #30 tablet 10/26/16 Oxycodone HCl/Acetaminophen [Percocet 5-325 mg Tablet] 1 tab PO Q6H #20 tablet MDD 4 10/26/16
== END 2017-01-06 01:00 | disposition short-term general hospital (02) | DRG 133 ==
LOC: JER 20:57 → JERBED 22:53 → UNDOADMIN 23:31 → JICU 01-05 00:46 → JERBED 01-05 00:46
PROVIDERS: ADMIT Internal Medicine; ATTEND Registered Nurse
PROC: 0BH17EZ Insertion of Endotracheal Airway into Trachea, Via Natural or Artificial Opening (ICD-10-PCS; principal; 2017-01-04)
PROC: 5A1945Z Respiratory Ventilation, 24-96 Consecutive Hours (ICD-10-PCS; 2017-01-04)
DX: J96.00 Acute respiratory failure, unspecified whether with hypoxia or hypercapnia (principal); D84.1 Defects in the complement system; T78.3XXA Angioneurotic edema, initial encounter; J45.909 Unspecified asthma, uncomplicated; I73.00 Raynaud's syndrome without gangrene; Z87.891 Personal history of nicotine dependence; J18.9 Pneumonia, unspecified organism; I25.10 Atherosclerotic heart disease of native coronary artery without angina pectoris; Z86.73 Personal history of transient ischemic attack (TIA), and cerebral infarction without residual deficits
CPT/HCPCS: 31500; 36415; 36600; 71010-TC; 80048; 80053; 82375; 82553; 82803; 83050; 83735; 84484; 85025; 85610; 93005; 93010; 94002; 99285-25; J1644

== ENCOUNTER 2017-05-01 18:48 | Emergency (ER) | payer OTHER ==
--- NOTE | 2017-05-01 18:53 | PDOC ---
Rapid Medical Evaluation Time Seen by Provider: 05/01/17 18:51 Medical Evaluation: Allergies Allergy/AdvReac Type Severity Reaction Status Date / Time No Known Allergies Allergy Verified 05/01/17 18:50 05/01/17 18:51 pt presents to ER with port a cath to the right chest wall c/o pain. last accessed monday, states the cath is working however has pain. sent by at [facility] to have the needle removed.
[2017-05-01 18:55] VITALS: BP 145/97; PULSE 83; TEMP 97.8; BMI 26.4
--- NOTE | 2017-05-01 20:43 | PDOC ---
History of Present Illness <Denita Galaviz - Last Filed: 05/01/17 20:41> - General History Source: Patient Exam Limitations: No Limitations - History of Present Illness Initial Comments: 05/02/17 06:14 Patient is a 32 year old male with a significant past medical history of hereditary angioedema c/b multiple intubations, asthma, raynaud's syndrome, essential tremors, and renal calculi who presents to the ED with complaints of bleeding from right sided chest port the began yesterday morning. Patient reports getting right sided chest port inserted 2 weeks ago for medication administration for his angioedema. He reports getting the port cleaned and replaced monday afternoon by a visiting nurse. Patient reports after chest port replacement was inserted, he discovered the port was elevated from skin, and he felt was misplaced. He reports that yesterday, he noticed one episode of blood dripping down the port which occured again today. Patient called Bulldozer Operator this afternoon and sent him a picture of the blood dripping down. His electronic wirer then referred him to the ER for chest port removal and cleaning. He will have a new one replaced tomorrow. Denies nausea, vomiting. Denies fevers, chills. Denies SOB. Denies any other symptoms. Allergies: None Social history: Current smoker, Social Drinker. No illicit drugs. Surgical history: Deviated Septum, Cardiac Cath (age 10) PMD: Dr. Maldonado ([facility]) [phone] Bulldozer Operator: Dr. Lazaro - ([facility]) [phone] (contact center consultant #) Surgeon: Dr. Ramos <Marcell Tenorio - Last Filed: 05/02/17 06:15> - General Chief Complaint: Bleeding from PICC Line Stated Complaint: LEAKING PORT Time Seen by Provider: 05/01/17 18:51 Past History - Past Medical History Asthma: Yes Cardiac Disorders: Yes (MVP) COPD: No GI Disorders: Yes (NEW DX OF CDIFF COLITIS OCTOBER 2012) Kidney Stones: Yes (W/LITHOTRIPSY) - Immunization History Td Vaccination: Yes Immunization Up to Date: Yes - Suicide/Smoking/Psychosocial Hx Smoking Status: No Smoking History: Former smoker Years of Tobacco Use: 0 Have you smoked in the past 12 months: Yes Number of Cigarettes Smoked Daily: 0 Cigars Per Day: 0 Information on smoking cessation initiated: No 'Breaking Loose' booklet given: 01/05/17 Hx Alcohol Use: No Drug/Substance Use Hx: No Substance Use Type: None Hx Substance Use Treatment: No <Denita Galaviz - Last Filed: 05/01/17 20:41> <Marcell Tenorio - Last Filed: 05/02/17 06:15> - Past Medical History Allergies/Adverse Reactions: Allergies Allergy/AdvReac Type Severity Reaction Status Date / Time No Known Allergies Allergy Verified 05/01/17 18:50 Home Medications: Ambulatory Orders Diphenhydramine [Benadryl -] 50 mg PO ONCE 06/28/16 Varenicline Tartrate [Chantix] 1 mg PO ASDIR 06/28/16 Ibuprofen 800 mg PO TID #30 tablet 10/26/16 Oxycodone HCl/Acetaminophen [Percocet 5-325 mg Tablet] 1 tab PO Q6H #20 tablet MDD 4 10/26/16 Review of Systems - Review of Systems Able to Perform ROS?: Yes Comments:: 05/02/17 06:14 GENERAL/CONSTITUTIONAL: No fever or chills. No weakness. HEAD, EYES, EARS, NOSE AND THROAT: No change in vision. No ear pain or discharge. No sore throat. GASTROINTESTINAL: No nausea, vomiting, diarrhea or constipation. GENITOURINARY: No dysuria, frequency, or change in urination. CARDIOVASCULAR: No chest pain, no shortness of breath. RESPIRATORY: No cough, wheezing, or hemoptysis. MUSCULOSKELETAL: No joint or muscle swelling or pain. No neck or back pain. SKIN: No rash.+chest wall port discomfort NEUROLOGIC: No headache, vertigo, loss of consciousness, or change in strength/ sensation. ENDOCRINE: No increased thirst. No abnormal weight change. HEMATOLOGIC/LYMPHATIC: No anemia, easy bleeding, or history of blood clots. ALLERGIC/IMMUNOLOGIC: No hives or skin allergy. All Other Systems: Reviewed and Negative <Marcell Tenorio - Last Filed: 05/02/17 06:15> *Physical Exam - Vital Signs Last Vital Signs Temp Pulse Resp BP Pulse Ox 97.8 F 83 19 145/97 99 05/01/17 18:51 05/01/17 18:51 05/01/17 18:51 05/01/17 18:51 05/01/17 18:51 <Denita Galaviz - Last Filed: 05/01/17 20:41> - Vital Signs Last Vital Signs Temp Pulse Resp BP Pulse Ox 97.8 F 83 19 145/97 99 05/01/17 18:51 05/01/17 18:51 05/01/17 18:51 05/01/17 18:51 05/01/17 18:51 - Physical Exam Comments: 05/02/17 06:15 GENERAL: Awake, alert, and fully oriented, in no acute distress HEAD: No signs of trauma EYES: PERRLA, EOMI, sclera anicteric, conjunctiva clear ENT: Auricles normal inspection, hearing grossly normal, nares patent, oropharynx clear without exudates. Moist mucosa NECK: Normal ROM, supple, no lymphadenopathy, JVD, or masses LUNGS: Breath sounds equal, clear to auscultation bilaterally. No wheezes, and no crackles HEART: Regular rate and rhythm, normal S1 and S2, no murmurs, rubs or gallops CHEST: +Right sided port-a-cath needle slightly displaced from port. One single line of dried blood from the accessed port with no active bleeding. ABDOMEN: Soft, nontender, normoactive bowel sounds. No guarding, no rebound. No masses EXTREMITIES: Normal range of motion, no edema. No clubbing or cyanosis. No cords , erythema, or tenderness NEUROLOGICAL: Normal speech, cranial nerves intact, negative pronator drift, 5/ 5 strength in all 4 extremities, normal sensation to light touch in all 4 extremities, normal cerebellar exam, normal gait, normal reflexes and tone SKIN:Warm, Dry, normal turgor, no rashes or lesions noted. <Marcell Tenorio - Last Filed: 05/02/17 06:15> Medical Decision Making - Medical Decision Making 05/01/17 20:41 32-year-old male presents requesting removal of a Port-A-Cath to be replaced tomorrow. Vitals are unremarkable. Exam with Port-A-Cath in place with some dried blood that it leaked down but no active bleeding in the ED. Under sterile technique, Port-A-Cath has been removed with no active bleeding and a sterile gauze has been placed as well as a sterile dressing. Will discharge patient to follow-up with Dr. Lazaro tomorrow for replacement. I discussed the physical exam findings, ancillary test results and final diagnoses with the patient. I answered all of the patient's questions. The patient was satisfied with the care received and felt comfortable with the discharge plan and treatment plan. The patient will call their primary care physician within 24 hours to arrange follow-up and will return to the Emergency Department with any new, persistent or worsening symptoms. <Denita Galaviz - Last Filed: 05/01/17 20:41> *DC/Admit/Observation/Transfer <Denita Galaviz - Last Filed: 05/01/17 20:41> - Attestations Scribe Attestion: 05/02/17 06:15 Documentation prepared by Marcell Tenorio, acting as medical research scientist for Denita Galaviz MD, /DO. <Marcell Tenorio - Last Filed: 05/02/17 06:15> - Referrals Referrals: STAFF,NOT ON [Primary Care Provider] - - Patient Instructions Additional Instructions: Follow-up with Dr. Lazaro tomorrow as scheduled. Return to the emergency department if you have any new, worsening or concerning symptoms. - Post Discharge Activity
== END 2017-05-01 21:08 | disposition home or self-care (01) ==
LOC: JER 18:48
DX: Z45.9 Encounter for adjustment and management of unspecified implanted device (principal); J45.909 Unspecified asthma, uncomplicated; I73.00 Raynaud's syndrome without gangrene; G25.2 Other specified forms of tremor; Z87.891 Personal history of nicotine dependence
CPT/HCPCS: 99281-25

== ENCOUNTER 2017-06-05 15:21 | Emergency (ER) | payer OTHER ==
[2017-06-05 15:45] VITALS: BP 123/69; PULSE 107; TEMP 98.4; BMI 26.4
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
[2017-06-05] MEDS ORDERED: KETOROLAC TROMETHAMINE 60 MG/2 ML VIAL IM ONE (16:15)
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
[2017-06-05] MEDS ORDERED: diazePAM 5 MG TABLET PO ONE (16:55)
== END 2017-06-05 17:11 | disposition home or self-care (01) ==
LOC: JERFT 15:21
PROC: 3E0233Z Introduction of Anti-inflammatory into Muscle, Percutaneous Approach (ICD-10-PCS; principal; 2017-06-05)
DX: S13.4XXA Sprain of ligaments of cervical spine, initial encounter (principal); V43.52XA Car driver injured in collision with other type car in traffic accident, initial encounter; W22.11XA Striking against or struck by driver side automobile airbag, initial encounter; Y92.488 Other paved roadways as the place of occurrence of the external cause; Y93.89 Activity, other specified; T82.898A Other specified complication of vascular prosthetic devices, implants and grafts, initial encounter
CPT/HCPCS: 71046-TC; 72050-TC; 99281-25

== ENCOUNTER 2019-04-01 14:40 | Emergency (ER) | payer OTHER ==
--- NOTE | 2019-04-01 14:46 | PDOC ---
Rapid Medical Evaluation Time Seen by Provider: 04/01/19 14:42 Medical Evaluation: Allergies Allergy/AdvReac Type Severity Reaction Status Date / Time No Known Allergies Allergy Verified 06/05/17 15:41 04/01/19 14:43 CC: "I have a painful ball behind my left nipple." PE: tender mobile 2cm circular mass present around left areola Orders: breast sono Patient will proceed to ED for further evaluation.
[2019-04-01 14:49] VITALS: BP 134/77; PULSE 94; TEMP 98.2; BMI 27.2
--- NOTE | 2019-04-01 15:09 | PDOC ---
History of Present Illness - General Chief Complaint: Pain Stated Complaint: SICK Time Seen by Provider: 04/01/19 14:42 History Source: Patient Exam Limitations: No Limitations - History of Present Illness Initial Comments: 34 year old male with PMH hereditary angioedema s/p multiple intubations, asthma , essential tremor, c. diff colitis, renal calculi s/p lithotripsy presented to ED for left breast mass x6 weeks, worsening this week. Pt reported the mass has been getting progressively bigger over the last 6 weeks, becoming painful in the last two weeks. He reported he was seen by his PCP this week for the breast mass, was advised to have US, but his insurance has not approved it yet. He reported today he was at the gym, while jogging he felt the left breast mass paining him, prompting him to come to ED. Pt reported he did not take any pain medication today. He denied overlying skin redness, drainage, fever, vomiting. ROS General: denied fever, chills, generalized weakness. HEENT: denied sore throat, rhinorrhea, ear pain. Cardiovascular: denied chest pain, palpitations, syncope, diaphoresis. Chest: admitted to [facility]. Respiratory: denied shortness of breath, cough, sputum production, hemoptysis. Gastrointestinal: denied abdominal pain, nausea, vomiting, diarrhea, constipation, blood in stool. Genitourinary: denied dysuria, increased urinary frequency, hematuria, urinary incontinence, flank pain. Back: denied back pain. Musculoskeletal: denied joint pain, muscle pain, joint swelling. Neurological: denied headache, dizziness, numbness, tingling, weakness. Integumentary: denied rash, laceration, abrasion. Hematologic/Lymphatic: denied bruising or bleeding. PE Constitutional: Well-nourished, Well-developed, appearing stated age. HEENT: head is normocephalic, atraumatic. EOMI. PERRLA. no posterior pharyngeal erythema.no tonsillar swelling or exudates bilaterally. Neck: supple. Full ROM. Cardiovascular: regular heart rhythm. no murmurs. no pericardial friction rub. Respiratory: clear to auscultation bilaterally. no crackles, rhonchi or wheezing. no stridor. Chest: 2x2 mm indurated mass beneath the nipple, with tenderness to palpation. no overylying skin erythema, wound, laceration, abrasion. Gastrointestinal: soft, nontender. normal bowel sounds. no rebound, guarding, masses. Extremities: peripheral pulses intact. no lower extremity edema. Neurological: CN 2-12 grossly intact. moves all four extremities. Psych: awake, alert, oriented x3. follows commands. answers questions appropriately. Past History - Past Medical History Allergies/Adverse Reactions: Allergies Allergy/AdvReac Type Severity Reaction Status Date / Time No Known Allergies Allergy Verified 04/01/19 15:50 Home Medications: Ambulatory Orders NK [No Known Home Medication] 04/01/19 Asthma: Yes Cardiac Disorders: Yes (MVP) COPD: No GI Disorders: Yes (NEW DX OF CDIFF COLITIS OCTOBER 2012) Kidney Stones: Yes (W/LITHOTRIPSY) - Immunization History Td Vaccination: Yes Immunization Up to Date: Yes - Psycho Social/Smoking Cessation Hx Smoking Status: No Smoking History: Never smoked Years of Tobacco Use: 0 Have you smoked in the past 12 months: Yes Number of Cigarettes Smoked Daily: 0 Cigars Per Day: 0 'Breaking Loose' booklet given: 01/05/17 Hx Alcohol Use: No Drug/Substance Use Hx: No Substance Use Type: None Hx Substance Use Treatment: No *Physical Exam - Vital Signs Last Vital Signs Temp Pulse Resp BP Pulse Ox 98.2 F 94 H 18 134/77 91 L 04/01/19 14:45 04/01/19 14:45 04/01/19 14:45 04/01/19 14:45 04/01/19 14:45 Medical Decision Making - Medical Decision Making 34 year old male with above PMH presented to ED for evaluation of left breast mass. Initial Vital Signs Temp Pulse Resp BP Pulse Ox 98.2 F 94 H 18 134/77 98 04/01/19 14:45 04/01/19 14:45 04/01/19 14:45 04/01/19 14:45 04/01/19 15:53 Afebrile. No tachycardia. No tachypnea. Hypertensive. No hypoxia on room air. Labs ordered: none Imaging ordered: CXR, breast US Medications ordered: none 04/01/19 15:[address] Wood's view: no infiltrate. sharp costophrenic angles. no cardiomegaly. no mass noted. US report: Name: [facility] DEPARTMENT OF RADIOLOGY Phys: Rocky Jones NP : 1985 Age: 34 Sex: M [facility] Acct: [id number] Loc: [facility] [address] [facility] Exam Date: 04/01/19 Status: PRE [place] [address] Unit Number: [id number] EXAM#: TYPE/EXAM: RESULT: [id number] US/BREAST US LEFT LIMITED 1-NORMAL History provided: Rule out abscess. Real-time examination of the left breast demonstrates the following: Attention was directed towards an area of tenderness in the retroareolar portion of the breast. No cystic or solid masses are identified in this location. Clinical correlation as to any further evaluation of the right breast is now recommended. IMPRESSION: No evidence of right breast mass. Please see above discussion. BI-RADS Category 1: Negative. . Reported By: Justo Bond MD 04/01/19 1529 04/01/19 18:01 Official CXR report: Name: [facility] AZ[facility]O DEPARTMENT OF RADIOLOGY Phys: Rocky Jones NP : 1985 Age: 34 Sex: M [facility] Acct: [id number] Loc: [facility] [address] [facility] Exam Date: 04/01/19 Status: DEP ER [place] [address] Unit Number: [id number] EXAM#: TYPE/EXAM: RESULT: [id number] RAD/CHEST PA LAT Chest: Hypoxia 2 views of the chest reveal clear well aerated lungs, normal mediastinum and sharp angles. The bones and soft tissues are intact. An acute process is not seen. Since 2017 the right port has been removed. The lungs remain clear. Correlation recommended. Reported By: Rocky Hurtado MD 04/01/19 1625 Discharge - Discharge Information Problems reviewed: Yes Clinical Impression/Diagnosis: Breast mass Condition: Stable Disposition: HOME - Admission No - Follow up/Referral Referrals: Huang Yoon MD [Primary Care Provider] - - Patient Discharge Instructions Additional Instructions: Follow up with your primary care doctor within 3 days. Your care is not complete until you follow up. Bring all paperwork given to you today. Return to the Emergency for increasing pain despite ibuprofen use, chest pain, shortness of breath, vomiting, fever, increasing redness to the skin around the area, discharge from the area, nipple retraction or any other new, worsening or concerning symptoms. - Post Discharge Activity Work/Back to School Note: Back to Work
[2019-04-01] MEDS ORDERED: IBUPROFEN 600 MG TABLET (FP) PO ONE ×2 (15:20→15:39)
--- NOTE | 2019-04-01 15:39 | PDOC ---
Documentation entered by Eric Mendiola SCRIBE, acting as scribe for Nathan Wood MD. Nathan Wood MD: This documentation has been prepared by the Maury zambrano Daniel, SCRIBE, under my direction and personally reviewed by me in its entirety. I confirm that the documentation accurately reflects all work, treatment, procedures, and medical decision making performed by me. Attending Attestation - Resident Resident Name: Shima Escobedo - ED Attending Attestation I have performed the following: I have examined & evaluated the patient, The case was reviewed & discussed with the resident, I agree w/resident's findings & plan, Exceptions are as noted - HPI HPI: 04/01/19 15:28 The patient is a 34 year old male with a past medical history of Reynauds syndrome, hereditary angioedema (9 prior intubations), c diff, and renal stones here today for evaluation of left breast mass. The patient reports that he noticed a mass just under his left nipple 6 weeks ago. He reports that since then it has gotten bigger and more painful. Patient notes going to his doctor to get an US but came in today because he could not wait. Patient denies headache, lightheadedness. Denies fever, chills. Denies shortness of breath. Denies nausea, vomiting, diarrhea, abdominal pain. Allergies: NKA PCP: Huang Yoon - Physicial Exam PE: 04/01/19 15:37 GENERAL: The patient is awake, alert, and fully oriented, Nontoxic - in no acute distress. CHEST: small non indurated, non fluctuant, non erythemadous, minimaly tender nodule under the L areola - Medical Decision Making 04/01/19 15:38 breast mass - n oigns of abcess clinically US reviewed cxr neg will dc with pmd fu return precauions were discussed
== END 2019-04-01 15:49 | disposition home or self-care (01) ==
LOC: JER 14:40
DX: N63.20 Unspecified lump in the left breast, unspecified quadrant (principal); D84.1 Defects in the complement system; I73.00 Raynaud's syndrome without gangrene; G25.0 Essential tremor; Z86.19 Personal history of other infectious and parasitic diseases; Z87.442 Personal history of urinary calculi
CPT/HCPCS: 71046-TC-FY; 76642-TC-LT; 99281-25